=== PATIENT | female | born 1955 | race Caucasian/White ===

== ENCOUNTER 2018-02-18 08:30 | Inpatient (IN) | payer MEDICAID ==
[~2018-02-18] VITALS: Ht 160 cm; Wt 69.9 kg
[~2018-02-18 08:30] MED LIST: ALBU6.7H INH; CHLO25TA2 PO; DULO30CA2 PO; HYDR200T80 PO; IBUP-1636 PO; LISI40TA4 PO; METF-414 PO; METO-385 PO; QUET100T PO
[2018-02-18] MEDS ORDERED: ONDANSETRON HCL 4MG/2ML INJ IV STA (09:06)
[2018-02-18] MEDS ORDERED: SODIUM CHLORIDE 0.9% 1,000 ML IV ONE (09:06)
[2018-02-18] MEDS ORDERED: DEXTROSE 50% WATER 50ML SYRINGE IV ONE ×2 (09:15→14:00)
[2018-02-18 09:49] LABS: HEMATOCRIT. 28.7 % (36.0-48.0); HEMOGLOBIN. 9.3 g/dL (12.0-16.0); MEAN CORPUSCULAR VOLUME 92.2 fL (81.0-99.0); MEAN PLATELET VOLUME 7.8 fl (7.4-10.4); PLATELET 334 x1000/uL (130-400); RED BLOOD CELL COUNT 3.11 mill/uL (4.2-5.4); RED CELL DISTRIBUTION WIDTH 16.4 % (11.6-14.6)
[2018-02-18 09:52] LABS: INR 0.9; PROTHROMBIN TIME 9.4 sec (9.1-11.1)
[2018-02-18 09:56] LABS: CHLORIDE 116 mEq/L (98-107)
[2018-02-18 10:15] LABS: CLARITY URINE CLEAR (CLEAR); COLOR URINE YELLOW (YELLOW); KETONES URINE NEGATIVE (NEGATIVE); LEUKOCYTE ESTERASE URINE TRACE (NEGATIVE); NITRITE URINE NEGATIVE (NEGATIVE); OCCULT BLOOD URINE NEGATIVE (NEGATIVE); PH URINE 5.5 (4.5-8.0); PROTEIN URINE NEGATIVE (NEGATIVE); SPECIFIC GRAVITY URINE 1.011 (1.005-1.030); UROBILINOGEN URINE 0.2 E.U./dL (0.2-1.0)
[2018-02-18 10:57] LABS: PLATELET ESTIMATE NORMAL
[2018-02-18] MEDS ORDERED: DEXT 5%/0.45% NACL 500ML 500 ML IV ONE (12:15)
[2018-02-18] MEDS ORDERED: ACETAMINOPHEN 325MG TABLET PO PRN (13:30)
[2018-02-18 19:15] VITALS: BP 128/60
[2018-02-18] MEDS ORDERED: METO-396 PO (19:56)
[2018-02-18] MEDS ORDERED: DILT240T12 PO (19:56)
[2018-02-18] MEDS ORDERED: QUET300T2 PO (19:56)
[2018-02-18] MEDS ORDERED: HYDR-4135 PO (19:56)
[2018-02-18 20:00] VITALS: BP 128/60
[2018-02-18] MEDS: BLOOD SUGAR DIAGNOSTIC STRIP TEST SCH (20:11)
[2018-02-18 20:25] VITALS: BP 128/60
[2018-02-18] MEDS: TRAMADOL 50MG TABLET PO PRN (20:27)
[2018-02-18] MEDS: DILTIAZEM HCL 120MG CAPSULE CD 24HR PO SCH (20:28)
[2018-02-18] MEDS ORDERED: AMLODIPINE 5MG TABLET PO SCH (21:00)
[2018-02-18] MEDS ORDERED: QUETIAPINE FUMARATE 100MG TABLET PO SCH (21:00)
[2018-02-18] MEDS: INSULIN LISPRO 100 UNITS/ML SUBCUT SCH (21:00)
[2018-02-18] MEDS: DEXTROSE 50% WATER 50ML SYRINGE IV PRN (21:51)
[2018-02-18] MEDS: HYDRALAZINE HCL 50MG TABLET PO SCH (21:55)
[2018-02-19] VITALS: BP 147/52
[2018-02-19] MEDS: DEXTROSE 50% WATER 50ML SYRINGE IV PRN ×4 (01:43→10:14)
[2018-02-19 04:00] VITALS: BP 156/63
[2018-02-19] MEDS: HYDRALAZINE HCL 50MG TABLET PO SCH ×3 (04:19→21:07)
[2018-02-19] MEDS: INSULIN LISPRO 100 UNITS/ML SUBCUT SCH (06:10)
[2018-02-19] MEDS: BLOOD SUGAR DIAGNOSTIC STRIP TEST SCH ×5 (06:10→21:07)
[2018-02-19 08:00] VITALS: BP 147/60
[2018-02-19] MEDS ORDERED: DEXT 10% WATER 1,000 ML IV SCH ×3 (08:00→15:30)
[2018-02-19] MEDS: DILTIAZEM HCL 120MG CAPSULE CD 24HR PO SCH (08:19)
[2018-02-19 09:07] LABS: BASOPHILS % 0.5 % (0.0-2.0); HEMATOCRIT. 27.1 % (36.0-48.0); LYMPHOCYTES % 8.6 % (20.0-50.0); MEAN CORPUSCULAR HEMOGLOBIN 30.4 pg (28.0-32.0); MEAN CORPUSCULAR VOLUME 91.7 fL (81.0-99.0); MEAN PLATELET VOLUME 7.6 fl (7.4-10.4); NEUTROPHILS % 77.9 % (40.0-76.0); PLATELET 300 x1000/uL (130-400); RED BLOOD CELL COUNT 2.96 mill/uL (4.2-5.4); RED CELL DISTRIBUTION WIDTH 16.3 % (11.6-14.6)
[2018-02-19 10:00] LABS: PHOSPHORUS 3.3 mg/dL (2.5-4.9)
[2018-02-19] MEDS: METOPROLOL TARTRATE 25MG TABLET PO SCH ×2 (11:31→21:06)
[2018-02-19 12:00] VITALS: BP 150/54
[2018-02-19] MEDS: TRAMADOL 50MG TABLET PO PRN ×2 (12:33→21:07)
[2018-02-19] MEDS ORDERED: FERROUS SULFATE 325MG TABLET PO SCH (13:00)
[2018-02-19 16:00] VITALS: BP 133/90
[2018-02-19 16:43] LABS: T4 FREE 0.92 ng/dL (0.76-1.46)
[2018-02-19] MEDS: DOCUSATE SODIUM 100MG CAPSULE PO SCH (17:41)
[2018-02-19] MEDS ORDERED: DEXTROSE 10% WATER 1,000 ML IV SCH (19:45)
[2018-02-20] VITALS: BP 179/65
[2018-02-20] MEDS: CLONIDINE 0.1MG TABLET PO PRN (00:31)
[2018-02-20] MEDS: BLOOD SUGAR DIAGNOSTIC STRIP TEST SCH ×5 (00:31→20:56)
[2018-02-20 04:00] VITALS: BP 114/54
[2018-02-20] MEDS: TRAMADOL 50MG TABLET PO PRN (05:37)
[2018-02-20] MEDS: HYDRALAZINE HCL 50MG TABLET PO SCH (05:37)
[2018-02-20 07:01] LABS: BASOPHILS % 0.5 % (0.0-2.0); EOSINOPHILS % 3.9 % (0.0-5.0); HEMATOCRIT. 26.7 % (36.0-48.0); HEMOGLOBIN. 8.9 g/dL (12.0-16.0); LYMPHOCYTES % 11.3 % (20.0-50.0); MEAN CORPUSCULAR HEMOGLOBIN 30.6 pg (28.0-32.0); MEAN CORPUSCULAR VOLUME 91.5 fL (81.0-99.0); MONOCYTES % 11.9 % (2.0-8.0); NEUTROPHILS % 72.4 % (40.0-76.0); PLATELET 315 x1000/uL (130-400); RED BLOOD CELL COUNT 2.92 mill/uL (4.2-5.4); RED CELL DISTRIBUTION WIDTH 16.1 % (11.6-14.6)
[2018-02-20 08:00] VITALS: BP 145/78
[2018-02-20] MEDS: DOCUSATE SODIUM 100MG CAPSULE PO SCH ×2 (08:36→16:58)
[2018-02-20] MEDS: METOPROLOL TARTRATE 25MG TABLET PO SCH ×2 (08:37→21:27)
[2018-02-20] MEDS: DILTIAZEM HCL 120MG CAPSULE CD 24HR PO SCH (08:37)
[2018-02-20] MEDS: ONDANSETRON HCL 4MG/2ML INJ IV PRN ×2 (09:29→16:58)
[2018-02-20] MEDS ORDERED: DEXTROSE 10% WATER 500 ML IV SCH (10:15)
[2018-02-20] MEDS: IRON SUCROSE COMPLEX 100 MG/5 ML ML IV SCH (11:58)
[2018-02-20 12:00] VITALS: BP 145/60
[2018-02-20] MEDS ORDERED: LACTULOSE 20G/30ML UDC PO PRN (13:15)
[2018-02-20] MEDS ORDERED: HYDROCODONE/ACETAMINOPHEN 5/325MG TABLET PO PRN (13:15)
[2018-02-20] MEDS: HYDRALAZINE HCL 100MG TABLET PO SCH ×2 (14:19→21:27)
[2018-02-20 16:00] VITALS: BP 158/59
[2018-02-20 20:00] VITALS: BP 171/63
[2018-02-21] VITALS: BP 161/71
[2018-02-21] MEDS: CLONIDINE 0.1MG TABLET PO PRN ×2 (00:03→16:20)
[2018-02-21] MEDS: ONDANSETRON HCL 4MG/2ML INJ IV PRN (00:03)
[2018-02-21] MEDS: BLOOD SUGAR DIAGNOSTIC STRIP TEST SCH ×5 (00:15→20:32)
[2018-02-21 04:00] VITALS: BP 144/55
[2018-02-21] MEDS: HYDRALAZINE HCL 100MG TABLET PO SCH ×3 (05:49→21:11)
[2018-02-21 07:26] LABS: BASOPHILS % 1.3 % (0.0-2.0); EOSINOPHILS % 4.2 % (0.0-5.0); HEMATOCRIT. 25.4 % (36.0-48.0); HEMOGLOBIN. 8.6 g/dL (12.0-16.0); LYMPHOCYTES % 9.6 % (20.0-50.0); MEAN CORPUSCULAR HEMOGLOBIN 30.5 pg (28.0-32.0); MEAN CORPUSCULAR VOLUME 90.6 fL (81.0-99.0); MEAN PLATELET VOLUME 8.2 fl (7.4-10.4); MONOCYTES % 12.1 % (2.0-8.0); NEUTROPHILS % 72.8 % (40.0-76.0); PLATELET 299 x1000/uL (130-400); RED CELL DISTRIBUTION WIDTH 15.6 % (11.6-14.6)
[2018-02-21 08:00] VITALS: BP 168/70
[2018-02-21] MEDS: DOCUSATE SODIUM 100MG CAPSULE PO SCH ×2 (08:41→16:20)
[2018-02-21] MEDS: METOPROLOL TARTRATE 25MG TABLET PO SCH (08:41)
[2018-02-21] MEDS: DILTIAZEM HCL 120MG CAPSULE CD 24HR PO SCH (08:41)
[2018-02-21] MEDS: IRON SUCROSE COMPLEX 100 MG/5 ML ML IV SCH (09:00)
[2018-02-21 12:00] VITALS: BP 145/53
[2018-02-21] MEDS ORDERED: POLYETHYLENE GLYCOL 3350 (17GM) 1 DOSE PACK PO NR (14:45)
[2018-02-21] MEDS: FAMOTIDINE 20MG TABLET PO SCH (14:59)
[2018-02-21 16:00] VITALS: BP 167/56
[2018-02-21] MEDS: METOPROLOL TARTRATE 50MG TABLET PO SCH (21:10)
[2018-02-21] MEDS ORDERED: QUETIAPINE FUMARATE 100MG TABLET PO SCH (22:30)
[2018-02-22] VITALS: BP 118/46
[2018-02-22 04:00] VITALS: BP 140/51
[2018-02-22] MEDS: HYDRALAZINE HCL 100MG TABLET PO SCH ×2 (05:18→13:46)
[2018-02-22] MEDS: BLOOD SUGAR DIAGNOSTIC STRIP TEST SCH ×2 (05:56→12:06)
[2018-02-22 07:16] LABS: BASOPHILS % 1.2 % (0.0-2.0); EOSINOPHILS % 3.6 % (0.0-5.0); HEMATOCRIT. 24.2 % (36.0-48.0); HEMOGLOBIN. 8.1 g/dL (12.0-16.0); MEAN CORPUSCULAR HEMOGLOBIN 30.5 pg (28.0-32.0); MEAN CORPUSCULAR VOLUME 91.4 fL (81.0-99.0); MEAN PLATELET VOLUME 8.1 fl (7.4-10.4); MONOCYTES % 13.9 % (2.0-8.0); NEUTROPHILS % 70.3 % (40.0-76.0); PLATELET 285 x1000/uL (130-400); RED BLOOD CELL COUNT 2.65 mill/uL (4.2-5.4); RED CELL DISTRIBUTION WIDTH 15.5 % (11.6-14.6)
[2018-02-22 08:00] VITALS: BP 125/68
[2018-02-22] MEDS ORDERED: LINAGLIPTIN 5MG TABLET PO SCH (09:00)
[2018-02-22] MEDS: DOCUSATE SODIUM 100MG CAPSULE PO SCH (09:36)
[2018-02-22] MEDS: DILTIAZEM HCL 120MG CAPSULE CD 24HR PO SCH (09:36)
[2018-02-22] MEDS: METOPROLOL TARTRATE 50MG TABLET PO SCH (09:37)
[2018-02-22] MEDS: FAMOTIDINE 20MG TABLET PO SCH (09:37)
[2018-02-22] MEDS: TRAMADOL 50MG TABLET PO PRN (09:45)
[2018-02-22 12:00] VITALS: BP 108/49
== END 2018-02-22 18:25 | disposition home health service (06) | DRG 469 ==
LOC: ER 08:30 → 8WST 10:32 → EDBEDREQ 10:34 → ENRESERV 17:07
PROVIDERS: ADMIT Internal Medicine; ATTEND Internal Medicine
DX: N17.1 Acute kidney failure with acute cortical necrosis (principal); E11.649 Type 2 diabetes mellitus with hypoglycemia without coma; E11.22 Type 2 diabetes mellitus with diabetic chronic kidney disease; E44.0 Moderate protein-calorie malnutrition; E87.2 Acidosis; N18.4 Chronic kidney disease, stage 4 (severe); E87.8 Other disorders of electrolyte and fluid balance, not elsewhere classified; Z68.27 Body mass index [BMI] 27.0-27.9, adult; F40.240 Claustrophobia; G43.909 Migraine, unspecified, not intractable, without status migrainosus; G47.00 Insomnia, unspecified; I12.9 Hypertensive chronic kidney disease with stage 1 through stage 4 chronic kidney disease, or unspecified chronic kidney disease; E66.9 Obesity, unspecified; G89.29 Other chronic pain; D63.8 Anemia in other chronic diseases classified elsewhere; M19.90 Unspecified osteoarthritis, unspecified site; T38.3X5A Adverse effect of insulin and oral hypoglycemic [antidiabetic] drugs, initial encounter; M48.061 Spinal stenosis, lumbar region without neurogenic claudication; M79.7 Fibromyalgia; I72.2 Aneurysm of renal artery; Z53.29 Procedure and treatment not carried out because of patient's decision for other reasons; R11.2 Nausea with vomiting, unspecified; M51.16 Intervertebral disc disorders with radiculopathy, lumbar region; Z79.84 Long term (current) use of oral hypoglycemic drugs; Z79.899 Other long term (current) drug therapy; Z82.49 Family history of ischemic heart disease and other diseases of the circulatory system; Z83.3 Family history of diabetes mellitus; Z88.0 Allergy status to penicillin; Z88.5 Allergy status to narcotic agent; Z88.6 Allergy status to analgesic agent; Z98.891 History of uterine scar from previous surgery; Y92.89 Other specified places as the place of occurrence of the external cause
CPT/HCPCS: 36415; 71045; 72131; 80048; 82533; 82570; 82947; 82962; 83036; 83525; 83540; 83550; 83735; 83880; 84100; 84156; 84439; 84443; 84481; 84484; 84681; 93005; 93971; 97116; 97162; 99285; J2405; J7030